=== PATIENT | female | born 2000 | race Caucasian/White ===

== ENCOUNTER → 2020-09-28 | Outpatient (CLI) | payer OTHER | END | disposition home or self-care (01) | LOC: RAD 15:31 | PROVIDERS: ATTEND Orthopaedic Surgery | DX: R22.41 Localized swelling, mass and lump, right lower limb (principal); M79.661 Pain in right lower leg ==

== ENCOUNTER 2021-04-10 23:22 | Emergency (ER) | payer OTHER ==
[~2021-04-10] VITALS: Ht 167.6 cm; Wt 73.2 kg
--- NOTE | 2021-04-10 23:25 | NUR ---
SLAB PULLER: [id number]
--- NOTE | 2021-04-11 00:01 | NUR ---
PT arrived with c/o back pain in kidney area, visably jaundice, unable to urinate for 2 days, and mottled nail beds. Pt reports taking azo for two days to aid urination issues but has been unable to void. Also reports SOB, 87% on RA. Connected to all monitors, tachy HR. NC w/4L placed and unchanged O2 sat. WCTM
[2021-04-11 00:10] LABS: BASOPHILS % (AUTO) 0 % (0-1); EOSINOPHILS % (AUTO) 0 % (1-7); LYMPHOCYTES % (AUTO) 18 % (22-44); MEAN CORPUSCULAR HEMOGLOBIN 30.3 pg (27.0-34.8); MEAN CORPUSCULAR HGB CONC 33.5 g/dL (32.4-35.8); MEAN PLATELET VOLUME 7.1 fL (7.4-10.4); MONOCYTES % (AUTO) 8 % (2-9); NEUTROPHILS % (AUTO) 74 % (42-75); PLATELET COUNT 360 x10^3/uL (130-400); RED BLOOD COUNT 4.72 x10^6/uL (3.82-5.3)
--- NOTE | 2021-04-11 00:13 | NUR ---
Break RN: IV established, NS started. Patient to US.
[2021-04-11 00:17] LABS: ALBUMIN 4.1 g/dL (3.4-5.0); ANION GAP 9 mmol/L (5-15); CALCIUM 8.9 mg/dL (8.5-10.1); CHLORIDE 107 mmol/L (98-107)
[2021-04-11 00:23] LABS: ALANINE AMINOTRANSFERASE 15 U/L (12-78); ALKALINE PHOSPHATASE 66 U/L (45-117); BILIRUBIN,TOTAL 0.7 mg/dL (0.2-1.0); CREATININE 1.16 mg/dL (0.55-1.02); TOTAL PROTEIN 7.8 g/dL (6.4-8.2); TROPONIN I < 0.015 ng/mL (0.000-0.045)
[2021-04-11 00:30] LABS: SALICYLATE LEVEL < 1.7 mg/dL (2.8-20.0)
[2021-04-11] MEDS ORDERED: ONDANSETRON 2MG/ML, 2ML ONE ×3 (00:37→10:31)
[2021-04-11] MEDS ORDERED: ONDANSETRON 2MG/ML, 2ML IVPush ONE ×3 (01:00→11:00)
[2021-04-11 01:52] LABS: PH, VENOUS 7.458 pH (7.320-7.420)
[2021-04-11] MEDS ORDERED: METHYLENE BLUE IV ONE ×2 (03:00→09:30)
[2021-04-11] MEDS ORDERED: DEXTROSE 5% IV ONE ×2 (03:00→09:30)
[2021-04-11] MEDS ORDERED: METHYLENE BLUE 50 MG/10 ML AMP IV ONE ×2 (03:00→09:30)
--- NOTE | 2021-04-11 03:00 | NUR ---
Pt able to void, scant amount of red tinged urine provided.
[2021-04-11 03:26] LABS: MICROSCOPIC INDICATED
[2021-04-11] MEDS ORDERED: SODIUM CHLORIDE 0.9% 1,000ML IVBOLUS ONE ×2 (03:30)
--- NOTE | 2021-04-11 06:04 | NUR ---
Bladder scan preformed due to pt statement of lower ab discomfort. Approx 345ml found by bladder scanner
--- NOTE | 2021-04-11 06:56 | NUR ---
Report to Dina GAUTHIER
--- NOTE | 2021-04-11 06:58 | NUR ---
PT RESTING CALMLY IN BED. PT STATED SHE IS TRYING SLEEP BUT O2 DROPS ON MONITOR. NO REPORTS OF PAIN AT THIS TIME, CALL LIGHT WITHIN REACH. WILL CONTINUE TO MONITOR.
[2021-04-11 07:09] LABS: METHEMOGLOBIN 47.3 % (0.0-1.4); PH, VENOUS 7.339 pH (7.320-7.420)
--- NOTE | 2021-04-11 08:35 | NUR ---
PT AMBULATORY TO BATHROOM STEADILY. WILL CONTINUE TO MONITOR.
[2021-04-11] MEDS ORDERED: URIN1STR71 PO (08:56)
[2021-04-11] MEDS ORDERED: ACET-1600 PO (08:56)
[2021-04-11] MEDS ORDERED: CIMETIDINE 200 MG TABLET PO ONE (10:30)
[2021-04-11] MEDS ORDERED: ONDANSETRON ODT 4 MG ONE (10:36)
--- NOTE | 2021-04-11 10:56 | NUR ---
REPORT GIVEN TO MARISOL GAUTHIER AT [facility].
--- NOTE | 2021-04-11 11:32 | NUR ---
PT AWATING [facility] TO ARRIVE TO TRANSPORT. PT ABLE TO AMBULATE AROUND ROOM WITHOUT DIFFICULTY
[2021-04-11 12:25] VITALS: BP 129/75
== END 2021-04-11 12:31 | disposition short-term general hospital (02) ==
LOC: ED 23:30 → EDIP 04-11 02:36 → UNDOADMOB 04-11 02:36
DX: J96.91 Respiratory failure, unspecified with hypoxia (principal); D74.9 Methemoglobinemia, unspecified; R94.31 Abnormal electrocardiogram [ECG] [EKG]
CPT/HCPCS: 36415; 71045; 76700; 80053; 80299; 80329; 81001; 82803; 83050; 83605; 83690; 84145; 84484; 84703; 85025; 87040; 87086; 93005; 96361; 96365; 96367; 96375; 96376; 99291; J2405; J7030; Q9968; G0480